=== PATIENT | male | born 1955 | race Caucasian/White ===

== ENCOUNTER 2019-11-22 14:56 | Observation (INO) | payer OTHER ==
[~2019-11-22] VITALS: Ht 182.9 cm; Wt 86.1 kg
[2019-11-22] MEDS ORDERED: SODIUM CHLORIDE FLUSH 10ML SYR IVF ONE (15:00)
[2019-11-22] MEDS ORDERED: ASPIRIN 81 MG TABLET CHEW PO ONE (15:00)
[2019-11-22] MEDS ORDERED: ASPIRIN 81 MG TABLET CHEW ONE (15:08)
--- NOTE | 2019-11-22 15:15 | NUR ---
PT PRESENTING TO ER FOR SOB AND BACK PAIN THAT RADIATES TO THE FROM CHEST X2 DAYS. HX OF PE, CURRENTLY TAKING COUMADIN, LEVEL CHECKED TODAY 2.8 PER PAPERWORK FROM [facility]. 2 OFFICERS AT BEDSIDE. CONNECTED TO ALL MONITORING, VSS. EKG COMPLETED, MD AWARE. MD AT BEDSIDE. AWAITING ORDERS. CALL LIGHT WITHIN REACH.
[2019-11-22 15:21] LABS: BASOPHILS # (AUTO) 0.03 x10^3/uL (0-0.1); BASOPHILS % (AUTO) 0 % (0-1); EOSINOPHILS # (AUTO) 0.19 x10^3/uL (0-0.4); EOSINOPHILS % (AUTO) 2 % (1-7); LYMPHOCYTES # (AUTO) 1.72 x10^3/uL (1-3.4); LYMPHOCYTES % (AUTO) 20 % (22-44); MD NO; MEAN CORPUSCULAR HEMOGLOBIN 29.3 pg (27.5-34.5); MEAN CORPUSCULAR HGB CONC 32.7 g/dL (33.2-36.2); MEAN CORPUSCULAR VOLUME 89.6 fL (81-97); MEAN PLATELET VOLUME 8.5 fL (7.4-10.4); MONOCYTES # (AUTO) 0.78 x10^3/uL (0.2-0.8); MONOCYTES % (AUTO) 9 % (2-9); NEUTROPHILS # (AUTO) 5.96 x10^3/uL (1.8-6.8); NEUTROPHILS % (AUTO) 69 % (42-75); PLATELET COUNT 193 x10^3/uL (130-400); RED BLOOD COUNT 5.67 x10^6/uL (4.38-5.82); RED CELL DISTRIBUTION WIDTH 14.1 % (9.4-14.8)
[2019-11-22] MEDS ORDERED: PLEASE ENTER ALLERGIES MC SCH (15:30)
[2019-11-22 15:34] LABS: ALBUMIN 3.8 g/dL (3.4-5.0); ANION GAP 3 mmol/L (5-15); CALCIUM 8.8 mg/dL (8.5-10.1); CHLORIDE 107 mmol/L (98-107)
[2019-11-22 15:37] LABS: TROPONIN I < 0.015 ng/mL (0.000-0.045)
[2019-11-22 15:49] LABS: INTERNATIONAL NORMALIZED RATIO 2.66 (0.93-1.1); PROTHROMBIN TIME 28.5 Seconds (9.6-11.5)
[2019-11-22] MEDS ORDERED: LISI40TA PO (16:12)
[2019-11-22] MEDS ORDERED: PRIM50TA34 PO (16:12)
[2019-11-22] MEDS ORDERED: BUSP15TA PO (16:12)
[2019-11-22] MEDS ORDERED: OMEP-110 PO (16:12)
[2019-11-22] MEDS ORDERED: METO25TA35 PO (16:12)
[2019-11-22] MEDS ORDERED: WARF4TAB65 PO (16:12)
[2019-11-22] MEDS ORDERED: TRAZ150T62 PO (16:12)
[2019-11-22] MEDS ORDERED: ATOR40TA PO (16:12)
--- NOTE | 2019-11-22 16:13 | NUR ---
ALL RESULTS BACK. MD TO BEDSIDE TO UPDATE PT ON POC. PT TO BE ADMITTED.
--- NOTE | 2019-11-22 16:23 | NUR ---
HOSPITALIST TO BEDSIDE FOR ADMIT ASSESSMENT.
[2019-11-22] MEDS ORDERED: morphine SULFATE 10 MG/ML, 1ML IVPush PRN (16:30)
[2019-11-22] MEDS ORDERED: ACETAMINOPHEN 325 MG TABLET PO PRN (16:30)
--- NOTE | 2019-11-22 16:51 | NUR ---
REPORT GIVEN TO EDVIN ROBERTS, PT READY FOR TRANSPORT UP TO FLOOR
[2019-11-22 17:39] VITALS: BP 155/85
[2019-11-22 20:50] VITALS: BP 122/77
[2019-11-22] MEDS ORDERED: TRAZODONE 150MG TABLET PO SCH (21:00)
[2019-11-22] MEDS ORDERED: PRIMIDONE 50 MG TABLET PO SCH (21:00)
[2019-11-22] MEDS ORDERED: ATORVASTATIN 40 MG TABLET PO SCH (21:00)
[2019-11-22] MEDS: BUSPIRONE 5 MG TABLET PO SCH (21:48)
[2019-11-22] MEDS: METOPROLOL TARTRATE 25 MG TABLET PO SCH (21:50)
[2019-11-22 21:54] LABS: TROPONIN I < 0.015 ng/mL (0.000-0.045)
[2019-11-22] MEDS ORDERED: PRIMIDONE 50 MG TABLET PO ONE (22:30)
[2019-11-23 02:45] VITALS: BP 112/70
[2019-11-23 04:39] VITALS: BP 133/83
[2019-11-23] MEDS: HYDROcodone/APAP 5/325 TABLET PO PRN ×3 (04:50→16:14)
[2019-11-23 04:53] LABS: BASOPHILS # (AUTO) 0.03 x10^3/uL (0-0.1); BASOPHILS % (AUTO) 0 % (0-1); EOSINOPHILS # (AUTO) 0.28 x10^3/uL (0-0.4); EOSINOPHILS % (AUTO) 4 % (1-7); LYMPHOCYTES # (AUTO) 1.79 x10^3/uL (1-3.4); LYMPHOCYTES % (AUTO) 23 % (22-44); MD NO; MEAN CORPUSCULAR HEMOGLOBIN 29.3 pg (27.5-34.5); MEAN CORPUSCULAR HGB CONC 32.7 g/dL (33.2-36.2); MEAN CORPUSCULAR VOLUME 89.8 fL (81-97); MEAN PLATELET VOLUME 9.1 fL (7.4-10.4); MONOCYTES # (AUTO) 0.64 x10^3/uL (0.2-0.8); MONOCYTES % (AUTO) 8 % (2-9); NEUTROPHILS # (AUTO) 4.94 x10^3/uL (1.8-6.8); NEUTROPHILS % (AUTO) 64 % (42-75); PLATELET COUNT 179 x10^3/uL (130-400); RED BLOOD COUNT 5.37 x10^6/uL (4.38-5.82); RED CELL DISTRIBUTION WIDTH 14.1 % (9.4-14.8)
[2019-11-23 05:02] LABS: ANION GAP 5 mmol/L (5-15); CALCIUM 8.8 mg/dL (8.5-10.1); CHLORIDE 106 mmol/L (98-107); CHOLESTEROL, TOTAL 153 mg/dL (140-239); CREATININE 1.12 mg/dL (0.7-1.3); TRIGLYCERIDES 170 mg/dL (50-200); VLDL CHOLESTEROL 34 mg/dL (0-25)
[2019-11-23 05:06] LABS: CHOL/HDL RATIO 3.4; HDL CHOL % 29 % (26-37); HDL CHOLESTEROL (DIRECT) 45 mg/dL (40-60); LDL CHOLESTEROL,CALCULATED 74 mg/dL (54-169); LDL/HDL RATIO 1.6 (0.5-3.0); TROPONIN I < 0.015 ng/mL (0.000-0.045)
[2019-11-23 07:21] LABS: INTERNATIONAL NORMALIZED RATIO 2.75 (0.93-1.1); PROTHROMBIN TIME 29.5 Seconds (9.6-11.5)
[2019-11-23 07:42] VITALS: BP 134/86
[2019-11-23] MEDS ORDERED: REGADENOSON 0.4 MG/5 ML SYRINGE ONE (08:56)
[2019-11-23] MEDS ORDERED: LISINOPRIL 40 MG TABLET PO SCH (09:00)
[2019-11-23] MEDS ORDERED: OMEPRAZOLE 20 MG CAPSULE.DR PO SCH (09:00)
[2019-11-23] MEDS ORDERED: PRIMIDONE 50 MG TABLET PO SCH (09:00)
[2019-11-23] MEDS: BUSPIRONE 5 MG TABLET PO SCH (11:21)
[2019-11-23] MEDS: METOPROLOL TARTRATE 25 MG TABLET PO SCH (11:22)
[2019-11-23 13:40] VITALS: BP 131/76
[2019-11-23] MEDS ORDERED: OMNIPAQUE 350 MG/ML, 100ML BOTTLE ONE (17:17)
[2019-11-23] MEDS ORDERED: WARFARIN 2 MG TABLET PO-COUM SCH (18:00)
[2019-11-23] MEDS ORDERED: WARFARIN 2 MG TABLET PO-COUM ONE (18:00)
== END 2019-11-23 19:42 | disposition home or self-care (01) ==
LOC: ED 15:05 → EDBD 16:24 → EDIP 16:24 → INTOOBSV 16:24 → 5SO 17:05
PROVIDERS: ADMIT Internal Medicine Infectious Disease; ATTEND Internal Medicine
DX: R07.89 Other chest pain (principal); I10 Essential (primary) hypertension; E78.5 Hyperlipidemia, unspecified; G25.0 Essential tremor; Z79.01 Long term (current) use of anticoagulants; Z86.718 Personal history of other venous thrombosis and embolism; Z86.711 Personal history of pulmonary embolism
CPT/HCPCS: 36415; 71045; 71275; 78452; 80048; 80061; 82040; 83880; 84484; 85025; 85379; 85610; 93005; 93017; 93306; 99284; 99285; A9502; G0378; J2785; Q9967